=== PATIENT | female | born 1965 | race Caucasian/White ===

== ENCOUNTER 2017-04-04 07:38 | Day surgery (SDC) | payer BC, OTHER ==
[2017-03-28 14:11] VITALS: BMI 25.8
--- NOTE | 2017-04-04 08:16 | HP ---
Past Medical History - Primary Care Physician PCP:: James Smith - Admission Chief Complaint: thicken irregular EM History of Present Illness: 51 yo f with hx of irregular vaginal bleeding , sono showed irregular thick EM, admitted for hysteroscpy , D&C, possible polypectomy History Source: Patient Limitations to Obtaining History: No Limitations - Past Medical History Pulmonary: Yes: Asthma Gastrointestinal: Yes: GERD - Past Surgical History Hx Myomectomy: No Hx Transabdominal Cerclage: No - Smoking History Smoking history: Never smoked Have you smoked in the past 12 months: No Aproximately how many cigarettes per day: 0 - Alcohol/Substance Use Hx Alcohol Use: Yes (SICIALLY) - Social History History of Recent Travel: No Home Medications - Allergies Allergies/Adverse Reactions: Allergies Allergy/AdvReac Type Severity Reaction Status Date / Time terbutaline sulfate Allergy "HEARTRATE Verified 03/28/17 14:22 [From Brethine] INCREASED,BP DROPPED" - Home Medications Home Medications: Ambulatory Orders Albuterol Sulfate Inhaler - [Ventolin HFA Inhaler -] 1 - 2 inh PO PRN PRN Budesonide/Formeterol Fumarate [SYMBICORT 80/4.5mcg -] 1 inh PO PRN PRN Ranitidine HCl [Zantac] 300 mg PO DAILY 03/28/17 Review of Systems - Review of Systems Constitutional: reports: No Symptoms Eyes: reports: No Symptoms HENT: reports: No Symptoms Neck: reports: No Symptoms Cardiovascular: reports: No Symptoms Respiratory: reports: No Symptoms Gastrointestinal: reports: Bloating Genitourinary: reports: No Symptoms Breasts: reports: No Symptoms Reported Musculoskeletal: reports: No Symptoms Neurological: reports: No Symptoms Endocrine: reports: No Symptoms Hematology/Lymphatic: reports: No Symptoms Psychiatric: reports: No Symptoms Physical Exam-SLIDE [employer] Constitutional: Yes: Well Nourished, No Distress, Calm Eyes: Yes: WNL, Conjunctiva Clear, EOM Intact HENT: Yes: WNL, Atraumatic, Normocephalic Neck: Yes: WNL, Supple, Trachea Midline Cardiovascular: Yes: WNL, Regular Rate and Rhythm Respiratory: Yes: WNL, Regular, CTA Bilaterally Gastrointestinal: Yes: WNL ...Rectal Exam: Yes: WNL Renal/: Yes: WNL External Genitalia: Yes: Normal Vaginal Exam: Yes: Normal Cervix: Yes: Normal Uterus: Yes: Normal Adnexa: Not Palpable: Left, Right Breast(s): Yes: WNL Musculoskeletal: Yes: WNL Extremities: Yes: WNL Edema: No Integumentary: Yes: WNL Neurological: Yes: WNL, Alert, Oriented ...Motor Strength: WNL Psychiatric: Yes: WNL, Alert, Oriented Problem List - Problem (1) Metrorrhagia Code(s): N92.1 - EXCESSIVE AND FREQUENT MENSTRUATION WITH IRREGULAR CYCLE (2) Thickened endometrium Code(s): R93.8 - ABNORMAL FINDINGS ON DIAGNOSTIC IMAGING OF BODY STRUCTURES Assessment/Plan hysteroscopy, D&C, rba discussed
[2017-04-04] MEDS ORDERED: LIDOCAINE HCL/PF 2% SDV 5ML VIAL ONE (09:19)
[2017-04-04] MEDS ORDERED: MIDAZOLAM HCL 2 MG/2 ML SINGLE DOSE VIAL ONE (09:20)
[2017-04-04] MEDS ORDERED: PROPOFOL 20 ML ONE (09:20)
[2017-04-04] MEDS ORDERED: ROCURONIUM BROMIDE 50 MG/5 ML VIAL ONE (09:20)
[2017-04-04] MEDS ORDERED: ONDANSETRON 4 MG/2 ML VIAL IVPB PRN (10:27)
[2017-04-04] MEDS ORDERED: oxyCODONE HCL 5 MG TABLET PO PRN ×2 (10:27→11:20)
[2017-04-04] MEDS ORDERED: IBUPROFEN 800 MG/8 ML IJ IVPB PRN (10:27)
[2017-04-04] MEDS ORDERED: IBUPROFEN 600 MG TABLET (FP) PO PRN (10:27)
[2017-04-04] MEDS ORDERED: ELECTROLYTE-148 SOLN 1,000 ML IV SCH (10:30)
[2017-04-04] MEDS ORDERED: KETOROLAC TROMETHAMINE 30 MG/1 ML VIAL ONE (11:12)
[2017-04-04] MEDS ORDERED: KETOROLAC TROMETHAMINE 30 MG/1 ML VIAL IVPUSH ONE (11:20)
[2017-04-04 11:29] VITALS: TEMP 97.8
[2017-04-04] MEDS ORDERED: LACTATED RINGERS SOLUTION 1,000 ML IV SCH (11:30)
[2017-04-04] MEDS ORDERED: ONDANSETRON 4 MG/2 ML VIAL ONE (11:45)
[2017-04-04] MEDS ORDERED: ONDANSETRON 4 MG/2 ML VIAL IVPB ONE (11:51)
--- NOTE | 2017-04-04 12:05 | OP ---
DATE OF OPERATION: 04/04/2017 PREOPERATIVE DIAGNOSIS: Metrorrhagia and thickened, irregular endometrium. POSTOPERATIVE DIAGNOSIS: Metrorrhagia and thickened, irregular endometrium. PROCEDURE: Hysteroscopy, dilatation and curettage. SURGEON: James Smith MD ANESTHESIA: General. ESTIMATED BLOOD LOSS: 25 mL DESCRIPTION OF OPERATION: Patient was taken to the operating room. Under adequate general anesthesia, examination under anesthesia revealed external genitalia to be normal. Vagina was normal. Cervix was clean with a grade 2 prolapse. Small cystocele. The uterus was normal size, retroverted. Adnexa: No masses were palpable. Then, with a weighted speculum in the vagina, anterior lip of the cervix was grasped with single-tooth tenaculum, and then cervix was gradually dilated with Hegar dilator. Hysteroscope was introduced. Visualization of endocervical canal appeared to be normal. No polyp was seen. Then, endocervix was stenotic and difficult to dilate. After dilation of the endocervical canal with the Hegar dilator, hysteroscope was introduced, and then, the endometrium appeared to be adhesions consistent with the previous endometrial ablation. No polyp was found. Both cornual regions were visualized. Ostium was visualized. Several endometrial adhesions to the anterior and posterior wall were seen, which were lysed with moving the hysteroscope around. Then, endometrium was curetted. A small amount of tissue was obtained. Patient tolerated the procedure well, left the OR in good condition. Jeffy [id number]
[2017-04-04 13:39] VITALS: BP 124/84; PULSE 83
--- NOTE | 2017-04-05 14:19 | PATH ---
Surgical Pathology Report Patient Name: [facility]. Rec. #: [id number] /Age/Gender: 1965 (Age: 51) / F Account: [id number] Location: [facility] SUR[facility]ICAL Taken: 04/04/2017 Received: 04/04/2017 Reported: 04/05/2017 Physicians: James Smith M.D. Specimen(s) Received ENDOMETRIAL CURETTINGS Clinical History Postmenopausal bleeding Final Diagnosis ENDOMETRIUM, CURETTAGE: MINUTE STRIPS OF ATROPHIC APPEARING ENDOMETRIUM. FRAGMENTS OF BENIGN ENDOCERVICAL TISSUE. SMALL FRAGMENTS OF BENIGN SQUAMOUS EPITHELIUM. Electronically Signed Cas Clayton M.D. Gross Description Received in formalin labeled "endometrial curettings" is a 1.4 x 1.0 x 0.2 cm aggregate of mayfield-red soft tissue fragments. The formalin is filtered and the specimen is entirely submitted in one cassette. /04/04/201704/04/2017
== END 2017-04-04 13:30 | disposition home or self-care (01) ==
LOC: JASU-SURG 07:38
PROVIDERS: ATTEND Obstetrics & Gynecology
PROC: 0UDB8ZX Extraction of Endometrium, Via Natural or Artificial Opening Endoscopic, Diagnostic (ICD-10-PCS; principal; 2017-04-04 09:00)
DX: N92.1 Excessive and frequent menstruation with irregular cycle (principal); R93.8 Abnormal findings on diagnostic imaging of other specified body structures
CPT/HCPCS: 84703; 88305-TC; 94760

== ENCOUNTER 2018-06-24 01:31 | Emergency (ER) | payer BC ==
--- NOTE | 2018-06-24 01:45 | PDOC ---
History of Present Illness - General Chief Complaint: Injury Stated Complaint: RT KNEE PAIN Time Seen by Provider: 06/24/18 01:38 EDT - History of Present Illness Initial Comments: 06/24/18 01:29 EST This 53-year-old woman with a history of bilateral high riding patella and s/p bilateral surgical correction of a high riding patella(performed when patient was in her teen years) presents with right knee injury. Just prior to presentation, patient was walking on uneven pavement when she tripped and fell, Striking the anterior portion of her right knee. Patient sensed that she dislocated her patella and needed to reduce it prior to being able to stand. She was subsequently able to stand and ambulate although she had pain and swelling in the right knee. Patient took 3 OTC Advil with some relief of her pain. No other injury sustained. Patient states that since her surgical correction until now, she had no issues with patellar dislocation or other acute problems. Past History - Past Medical History Allergies/Adverse Reactions: Allergies Allergy/AdvReac Type Severity Reaction Status Date / Time terbutaline sulfate Allergy "HEARTRATE Verified 03/28/17 14:22 [From Brethine] INCREASED,BP DROPPED" Home Medications: Ambulatory Orders Albuterol Sulfate Inhaler - [Ventolin Hfa Inhaler -] 1 - 2 inh PO QID PRN Budesonide/Formeterol Fumarate [SYMBICORT 160/4.5mcg -] 1 inh PO DAILY 06/24/18 Anemia: No Asthma: Yes Cancer: No Cardiac Disorders: No CVA: No COPD: No CHF: No Dementia: No Diabetes: No GI Disorders: Yes (DIVERTICULITIS) Disorders: No HTN: No Hypercholesterolemia: No Liver Disease: No Seizures: No Thyroid Disease: No - Surgical History Orthopedic Surgery: Yes (KNEE) - Suicide/Smoking/Psychosocial Hx Smoking Status: No Smoking History: Never smoked Have you smoked in the past 12 months: No Number of Cigarettes Smoked Daily: 0 Hx Alcohol Use: Yes (OCC) Drug/Substance Use Hx: No Substance Use Type: None Hx Substance Use Treatment: No Review of Systems - Review of Systems Able to Perform ROS?: Yes Comments:: 12 point review of systems is negative except for what is noted in the history of present illness *Physical Exam - Physical Exam Comments: GENERAL: Adult female, alert and oriented 3, in no acute distress HEAD: Normal with no signs of trauma. EYES: PERRLA, EOMI, sclera anicteric, conjunctiva clear. ENT: Ears normal, nares patent, oropharynx clear without exudates. Moist mucous membranes. NECK: Normal range of motion, supple without lymphadenopathy, JVD, or masses. LUNGS: Breath sounds equal, clear to auscultation bilaterally. No wheezes, and no crackles. HEART:Regular rate and rhythm, normal S1 and S2 without murmur, rub or gallop. ABDOMEN:.normal bowel sounds No guarding,tenderness or rebound.No masses No distention. EXTREMITIES: Right knee-moderate edema of the anterior aspect of the knee with patella appearing somewhat distal to usual physician Flexion limited; no ecchymosis/ deformity/point tenderness joint line Remainder of the extremity exam is normal NEUROLOGICAL: Cranial nerves II through XII grossly intact. Normal speech. No focal neurological deficits. MUSCULOSKELETAL: Back non-tender to palpation, no CVA tenderness SKIN: Warm, Dry, normal turgor, no rashes or lesions noted. Progress Note - Progress Note Progress Note: 3 position x-ray of the right knee performed and interpreted by me: No evidence of fracture or effusion. Patella appears somewhat superior than normal but not medial or lateral to the midline Medical Decision Making - Medical Decision Making Patient states that her knee is much less edematous than earlier and comfortable. She feels that she can be fairly functional with knee in current state, especially if knee mobilizer is used knee immobilizer placed on the right leg. The patient will be discharged with instructions to elevate and ice the knee as much as possible over the next 2 days. Patient's mother, who accompany the patient, works with in the wound care clinic at [facility]. She states that her daughter can follow-up with Dr. Barbour on June 26. Meanwhile, patient will elevate and ice the right leg as much as possible. She should not work until being seen by Dr. Barbour. Work documentation has been given to her. The patient states that she will take [id number] ibuprofen as needed for pain. She should return to the emergency room if she has worsening of her pain or increased swelling in the area around her right knee. *DC/Admit/Observation/Transfer Diagnosis at time of Disposition: Closed dislocation of right patella Qualifiers: Encounter type: initial encounter Qualified Code(s): S83.004A - Unspecified dislocation of right patella, initial encounter - Discharge Dispostion Disposition: HOME Condition at time of disposition: Stable - Referrals Referrals: Willard Boateng MD [Primary Care Provider] - Lawson Barbour MD [Staff Physician] - - Patient Instructions Printed Discharge Instructions: DI for Patellar Dislocation Additional Instructions: Elevation/ice to right knee as much as possible over the next 48 hours Keep knee immobilizer in place Ibuprofen/acetaminophen/naproxen as needed for pain Follow-up with Dr. Barbour on June 26 as discussed Return to ER if you have severe pain/swelling No work until Jun 27 - Post Discharge Activity Forms/Work/School Notes: Back to Work
[2018-06-24 01:55] VITALS: BP 109/75; PULSE 82; TEMP 98.1; BMI 25.8
== END 2018-06-24 02:16 | disposition home or self-care (01) ==
LOC: FER 01:31
PROC: 2W3QX1Z Immobilization of Right Lower Leg using Splint (ICD-10-PCS; principal; 2018-06-24)
DX: S83.004A Unspecified dislocation of right patella, initial encounter (principal); X58.XXXA Exposure to other specified factors, initial encounter; Y93.89 Activity, other specified; Y92.9 Unspecified place or not applicable; J45.909 Unspecified asthma, uncomplicated
CPT/HCPCS: 73562-TC-RT-FY; 99282-25

== ENCOUNTER 2020-03-07 23:30 | Emergency (ER) | payer BC, OTHER ==
[2020-03-08 00:06] VITALS: BMI 27.3
[2020-03-08] MEDS ORDERED: FAMOTIDINE 20 MG/50 ML IVPB 20 MG/50 ML MG IVPB ONE ×2 (00:53→00:57)
[2020-03-08] MEDS ORDERED: MAG HYDROX/AL HYDROX/SIMETH -MYLANTA- ORAL SUSPENSION PO ONE (00:53)
[2020-03-08] MEDS ORDERED: LIDOCAINE VISCOUS 2% ORAL/TOP 20 ML UNIT-DOSE CUP MM ONE (00:53)
[2020-03-08] MEDS ORDERED: LIDOCAINE VISCOUS 2% ORAL/TOP 20 ML UNIT-DOSE CUP ONE (00:57)
[2020-03-08] MEDS ORDERED: MAG HYDROX/AL HYDROX/SIMETH 30 ML UNIT-DOSE CUP ONE (00:57)
--- NOTE | 2020-03-08 01:08 | PDOC ---
Documentation entered by Cata Orantes SCRIBE, acting as scribe for Socorro Doan MD. Socorro Doan MD: This documentation has been prepared by the Lamberto dugan Sydney, SCRIBE, under my direction and personally reviewed by me in its entirety. I confirm that the documentation accurately reflects all work, treatment, procedures, and medical decision making performed by me. Attending Attestation - Resident Resident Name: Red Grimaldo - ED Attending Attestation I have performed the following: I have examined & evaluated the patient, The case was reviewed & discussed with the resident, I agree w/resident's findings & plan, Exceptions are as noted - HPI HPI: 03/08/20 00:24 Patient is a 54 year old female with a significant past medical history of asthma, indigestion who presents to the ED with two days of progressively worsening epigastric discomfort. As per patient, she developed her usual epigastric discomfort and did not take any medications secondary to unable to refill her previous medication. Patient notes she went to sleep, but was awoken by her worsening symptoms. Patient endorses recently eating greasy foods and drinking more alcohol. Denies shortness of breath, perspirations, fever, or cough. Allergies: Terbutaline sulfate - Physicial Exam PE: 03/08/20 01:09 GENERAL: Well-appearing, well-nourished. No apparent distress. HEENT: Normocephalic, atraumatic. PERRL, EOM intact. CARDIOVASCULAR: Normal S1, S2. Regular rate and rhythm. PULMONARY: Clear to auscultation bilaterally. ABDOMEN: Soft, non-distended, non-tender. EXTREMITIES: Normal ROM in all four extremities. No gross deformities. SKIN: Warm, dry. No rash NEUROLOGICAL: No focal neurological deficits. - Medical Decision Making 03/08/20 01:24 CBC is normal 03/08/20 02:06 ALL LABS NORMAL pT WILL GET A TSH ADDED ON; SHE IS STABLE FOR D/C HOME 03/08/20 03:54 TSH AND FREE T4 NORMAL Discharge - Discharge Information Problems reviewed: Yes Clinical Impression/Diagnosis: Epigastric pain Fatigue Qualifiers: Fatigue type: unspecified Qualified Code(s): R53.83 - Other fatigue Condition: Stable Disposition: HOME - Admission No - Follow up/Referral Referrals: Cristhian Dior MD [Staff Physician] - CallBack Reminder: TSH - Patient Discharge Instructions Patient Printed Discharge Instructions: DI for Gastroesophageal Reflux Disease (GERD) Additional Instructions: Discharge Instructions: You were seen in the emergency department for pain. This is most likely due to acid reflux. Home Care and Follow Up; - Drink plenty of fluids at home. A good way to tell that you are well-hydrated is to make sure you need to urinate (pee) at least every 4 hours. - Consider taking a daily acid medication such as Pepcid (famotidine). This may be taken every day even if you do not have symptoms - Use Maalox or Mylanta for continued symptoms after eating - Avoid spicy, acidic, greasy foods as well as alcohol and caffeine. These can worsen symptoms - Call your primary doctor on Monday to schedule a follow up appointment - Make an appointment to see a GI specialist within the next 1-2 weeks. You may need additional testing. You have been given contact information for Dr Dior. - Seek immediate care for worsening symptoms, persistent vomiting, inability to eat, dehydration (eg not urinating, dry mouth), you have chest pain with exercise, you develop fever, you have cough or shortness of breath, or you have any other medical emergency. - Post Discharge Activity
[2020-03-08 01:18] LABS: BASO % 0.8 % (0-2.0); EOS % 3.6 % (0-4.5); HEMOGLOBIN 12.3 GM/dL (10.7-15.3); LYMPH % 37.1 % (8-40); MCH 31.3 pg (25.7-33.7); MCHC 33.2 g/dl (32.0-36.0); MEAN CELL VOLUME 94.5 fl (80-96); MONO % 8.1 % (3.8-10.2); NEUT % 50.4 % (42.8-82.8); PLATELET COUNT 166 K/MM3 (134-434); RBC 3.91 M/mm3 (3.60-5.2); RDW 13.5 % (11.6-15.6); WHITE BLOOD COUNT 5.4 K/mm3 (4.0-10.0)
[2020-03-08 01:47] LABS: ALBUMIN 3.6 g/dl (3.4-5.0); ALK PHOS 46 U/L (45-117); ANION GAP 5 MMOL/L (8-16); BILIRUBIN,TOTAL 0.3 mg/dL (0.2-1); BLOOD UREA NITROGEN 22.6 mg/dL (7-18); CALCIUM 8.6 mg/dL (8.5-10.1); CHLORIDE 107 mmol/L (98-107); CO2 28 mmol/L (21-32); CREATININE 0.9 mg/dL (0.55-1.3); GLUCOSE,RANDOM 95 mg/dL (74-106); POTASSIUM 3.9 mmol/L (3.5-5.1); SGOT/AST 22 U/L (15-37); SGPT/ALT 23 U/L (13-61); SODIUM 140 mmol/L (136-145); TOT PROT 6.5 g/dl (6.4-8.2)
--- NOTE | 2020-03-08 02:14 | PDOC ---
History of Present Illness <Cece Forbes - Last Filed: 03/08/20 02:14> - History of Present Illness Initial Comments: 03/08/20 02:01 54 F with asthma came to the ED with chest discomfort and ingestion. These started out yesterday, and it's been getting worse. Patient denies Nausea, fever, chills. Patient agreed that epigastric pain was most likely due to GERD. But due to the pressure from her mother, she just want to come to ED for further checkup . PMHX: as in HPI PSHX: ortho surgery Meds: none Allergies: shrimp Tob: neg Etoh: occasional Rec drugs: denies ROS GENERAL/CONSTITUTIONAL: No fever or chills. No weakness. HEAD, EYES, EARS, NOSE AND THROAT: No change in vision. No ear pain or dischar ge. No sore throat. CARDIOVASCULAR: No chest pain. shortness of breath RESPIRATORY: No cough, wheezing, or hemoptysis. GASTROINTESTINAL: No nausea, vomiting, diarrhea or constipation. GENITOURINARY: No dysuria, frequency, or change in urination. MUSCULOSKELETAL: No joint or muscle swelling or pain. No neck or back pain. SKIN: No rash NEUROLOGIC: No headache, vertigo, loss of consciousness, or change in strength/sensation. dizziness ENDOCRINE: No increased thirst. No abnormal weight change HEMATOLOGIC/LYMPHATIC: No anemia, easy bleeding, or history of blood clots. ALLERGIC/IMMUNOLOGIC: No hives or skin allergy. PE GENERAL: Awake, alert, and fully oriented, in no acute distress HEAD: No signs of trauma, normocephalic, atraumatic EYES: PERRLA, EOMI, sclera anicteric, conjunctiva clear ENT: Auricles normal inspection, hearing grossly normal, nares patent, oropharynx clear without exudates. Moist mucosa NECK: Normal ROM, supple, no lymphadenopathy, JVD, or masses LUNGS: No distress, speaks full sentences, clear to auscultation bilaterally HEART: Regular rate and rhythm, normal S1 and S2, no murmurs, rubs or gallops, peripheral pulses normal and equal bilaterally. ABDOMEN: Soft, nontender, normoactive bowel sounds. No guarding, no rebound. No masses. epigastric pain . EXTREMITIES : Normal inspection, Normal range of motion, no edema. No clubbing or cyanosis. NEUROLOGICAL: Cranial nerves II through XII grossly intact. Normal speech, normal gait, no focal sensorimotor deficits SKIN: Warm, Dry, normal turgor, no rashes or lesions noted 03/08/20 04:52 <Red Grimaldo - Last Filed: 03/08/20 04:53> - General Chief Complaint: Chest Pain Stated Complaint: CHEST PAIN/ IDIGESTION Time Seen by Provider: 03/07/20 23:47 Past History <Cece Forbes - Last Filed: 03/08/20 02:14> - Medical History Anemia: No Asthma: Yes Cancer: No Cardiac Disorders: No CVA: No COPD: No CHF: No Dementia: No Diabetes: No GI Disorders: Yes (DIVERTICULITIS) Disorders: No HTN: No Hypercholesterolemia: No Liver Disease: No Seizures: No Thyroid Disease: No - Surgical History Orthopedic Surgery: Yes (KNEE) - Psycho-Social/Smoking History Smoking Status: No Smoking History: Former smoker Have you smoked in the past 12 months: No Number of Cigarettes Smoked Daily: 0 Information on smoking cessation initiated: No - Substance Abuse Hx (Audit-C & DAST Scrn) How often the patient has a drink containing alcohol: Monthly or less Number of drinks the patient has on a typical day: 1 or 2 Score: In Men: 4 or > Positive; In Women: 3 or > Positive: 1 Screen Result (Pos requires Nsg. Audit-10AR): Negative In the last yr the pt used illegal drug/Rx for NonMed reason: No Score: Yes response is considered Positive: 0 Screen Result (Positive result requires Nsg. DAST-10): Negative <Red Grimaldo - Last Filed: 03/08/20 04:53> - Medical History Allergies/Adverse Reactions: Allergies Allergy/AdvReac Type Severity Reaction Status Date / Time shrimp Allergy Verified 03/07/20 23:53 terbutaline sulfate Allergy "HEARTRATE Verified 03/07/20 23:53 [From Brethine] INCREASED,BP DROPPED" Home Medications: Ambulatory Orders Albuterol Sulfate Inhaler - [Ventolin Hfa Inhaler -] 1 - 2 inh PO QID PRN 06/24/18 Budesonide/Formeterol Fumarate [SYMBICORT 160/4.5mcg -] 1 inh PO DAILY 06/24/18 *Physical Exam - Vital Signs Last Vital Signs Temp Pulse Resp BP Pulse Ox 98.6 F 67 13 115/82 96 03/07/20 23:51 03/08/20 00:05 03/08/20 00:05 03/08/20 00:05 03/08/20 00:05 <Cece Forbes - Last Filed: 03/08/20 02:14> - Vital Signs Last Vital Signs Temp Pulse Resp BP Pulse Ox 98.6 F 67 13 115/82 96 03/07/20 23:51 03/08/20 00:05 03/08/20 00:05 03/08/20 00:05 03/08/20 00:05 <GrimaldoMeleRde - Last Filed: 03/08/20 04:53> ED Treatment Course - LABORATORY CBC & Chemistry Diagram: 03/08/20 01:08 03/08/20 01:08 - ADDITIONAL ORDERS Additional order review: Laboratory Results 03/08/20 01:08 Sodium 140 Potassium 3.9 Chloride 107 Carbon Dioxide 28 Anion Gap 5 L BUN 22.6 H Creatinine 0.9 Est GFR (CKD-EPI)AfAm 85.20 Est GFR (CKD-EPI)NonAf 73.51 Random Glucose 95 Calcium 8.6 Total Bilirubin 0.3 AST 22 ALT 23 Alkaline Phosphatase 46 Creatine Kinase 116 Troponin I < 0.02 Total Protein 6.5 Albumin 3.6 03/08/20 01:08 RBC 3.91 MCV 94.5 MCHC 33.2 RDW 13.5 MPV 10.0 Neutrophils % 50.4 Lymphocytes % 37.1 Monocytes % 8.1 Eosinophils % 3.6 D Basophils % 0.8 - RADIOLOGY Radiology Studies Ordered: Category Date Time Status CHEST PA & LAT [RAD] Stat Radiology 03/08/20 00:53 Taken - Medications Given in the ED: ED Medications Discontinued Medications Generic Name Dose Route Start Last Admin Trade Name Freq PRN Reason Stop Dose Admin Al Hydroxide/Mg Hydroxide 30 ml 03/08/20 00:53 03/08/20 01:10 Mylanta Suspension - PO 03/08/20 00:54 30 ml ONCE ONE Administration Famotidine/Sodium Chloride 20 mg in 50 mls @ 100 mls/hr 03/08/20 00:53 03/08/20 01:10 Pepcid 20 Mg Premixed Ivpb - IVPB 03/08/20 01:22 100 mls/hr ONCE ONE Administration Lidocaine HCl 20 ml 03/08/20 00:53 03/08/20 01:10 Xylocaine 2% Viscous Oral - MM 03/08/20 00:54 20 ml ONCE ONE Administration <Cece Forbes - Last Filed: 03/08/20 02:14> - LABORATORY CBC & Chemistry Diagram: 03/08/20 01:08 03/08/20 01:08 - ADDITIONAL ORDERS Additional order review: Laboratory Results 03/08/20 01:08 Sodium 140 Potassium 3.9 Chloride 107 Carbon Dioxide 28 Anion Gap 5 L BUN 22.6 H Creatinine 0.9 Est GFR (CKD-EPI)AfAm 85.20 Est GFR (CKD-EPI)NonAf 73.51 Random Glucose 95 Calcium 8.6 Total Bilirubin 0.3 AST 22 ALT 23 Alkaline Phosphatase 46 Creatine Kinase 116 Troponin I < 0.02 Total Protein 6.5 Albumin 3.6 03/08/20 01:08 RBC 3.91 MCV 94.5 MCHC 33.2 RDW 13.5 MPV 10.0 Neutrophils % 50.4 Lymphocytes % 37.1 Monocytes % 8.1 Eosinophils % 3.6 D Basophils % 0.8 - Medications Given in the ED: ED Medications Discontinued Medications Generic Name Dose Route Start Last Admin Trade Name Freq PRN Reason Stop Dose Admin Al Hydroxide/Mg Hydroxide 30 ml 03/08/20 00:53 03/08/20 01:10 Mylanta Suspension - PO 03/08/20 00:54 30 ml ONCE ONE Administration Famotidine/Sodium Chloride 20 mg in 50 mls @ 100 mls/hr 03/08/20 00:53 03/08/20 01:10 Pepcid 20 Mg Premixed Ivpb - IVPB 03/08/20 01:22 100 mls/hr ONCE ONE Administration Lidocaine HCl 20 ml 03/08/20 00:53 03/08/20 01:10 Xylocaine 2% Viscous Oral - MM 03/08/20 00:54 20 ml ONCE ONE Administration <Red Grimaldo - Last Filed: 03/08/20 04:53> Medical Decision Making - Medical Decision Making 03/08/20 02:24 Patient with asthma came here for epigastric pain. CBC, CMP, Thyroid hormones , troponin were ordered Xray, EKG Med: malox, tylenol. Lab results revealed no concerning problems. Troponin is negative. Thyroid hormones are pending Xray and EKG are normal. Patient was reassessed and stated she felt better. Patient is discharged with GERD. <Red Grimaldo - Last Filed: 03/08/20 04:53> Discharge - Discharge Information Problems reviewed: Yes - Admission No <Cece Forbes - Last Filed: 03/08/20 02:14> <Red Grimaldo - Last Filed: 03/08/20 04:53> - Discharge Information Clinical Impression/Diagnosis: Epigastric pain Fatigue Qualifiers: Fatigue type: unspecified Qualified Code(s): R53.83 - Other fatigue Condition: Stable Disposition: HOME - Follow up/Referral Referrals: Cristhian Dior MD [Staff Physician] - CallBack Reminder: TSH - Patient Discharge Instructions Patient Printed Discharge Instructions: DI for Gastroesophageal Reflux Disease (GERD) Additional Instructions: Discharge Instructions: You were seen in the emergency department for pain. This is most likely due to acid reflux. Home Care and Follow Up; - Drink plenty of fluids at home. A good way to tell that you are well-hydrated is to make sure you need to urinate (pee) at least every 4 hours. - Consider taking a daily acid medication such as Pepcid (famotidine). This may be taken every day even if you do not have symptoms - Use Maalox or Mylanta for continued symptoms after eating - Avoid spicy, acidic, greasy foods as well as alcohol and caffeine. These can worsen symptoms - Call your primary doctor on Monday to schedule a follow up appointment - Make an appointment to see a GI specialist within the next 1-2 weeks. You may need additional testing. You have been given contact information for Dr Dior. - Seek immediate care for worsening symptoms, persistent vomiting, inability to eat, dehydration (eg not urinating, dry mouth), you have chest pain with exercise, you develop fever, you have cough or shortness of breath, or you have any other medical emergency.
[2020-03-08 02:29] VITALS: BP 113/90; PULSE 61; TEMP 98.1
--- NOTE | 2020-03-09 09:17 | EKG ---
Test Reason : Blood Pressure : / mmHG Vent. Rate : 077 BPM Atrial Rate : 077 BPM P-R Int : 166 ms QRS Dur : 100 ms QT Int : 400 ms P-R-T Axes : 066 065 057 degrees QTc Int : 452 ms NORMAL SINUS RHYTHM POSSIBLE LEFT ATRIAL ENLARGEMENT INCOMPLETE RIGHT BUNDLE BRANCH BLOCK BORDERLINE ECG WHEN COMPARED WITH ECG OF 28-MAR-2017 13:08, NO SIGNIFICANT CHANGE WAS FOUND Confirmed by Basilia Padron ([id number]) on 03/09/2020 9:17:39 AM Referred By: Confirmed By:Basilia Padron
== END 2020-03-08 02:25 | disposition home or self-care (01) ==
LOC: JER 23:30
PROC: 3E033NZ Introduction of Analgesics, Hypnotics, Sedatives into Peripheral Vein, Percutaneous Approach (ICD-10-PCS; principal; 2020-03-07)
DX: R10.13 Epigastric pain (principal); R53.83 Other fatigue
CPT/HCPCS: 36415; 71046-TC-FY; 80053; 82550; 84439; 84443; 84484; 85025; 93005; 93010; 99285-25

== ENCOUNTER 2020-08-15 10:03 | Emergency (ER) | payer BC, OTHER | END 2020-08-15 10:53 | disposition home or self-care (01) | LOC: JVIRT 10:03 | DX: R50.9 Fever, unspecified (principal); R05 Cough; Z20.828 Contact with and (suspected) exposure to other viral communicable diseases | CPT/HCPCS: C9803; G2012-GT; Q3014-GT; U0003 ==

== ENCOUNTER 2022-07-01 04:23 | Day surgery (SDC) | payer BC, OTHER ==
[2022-06-29 14:30] VITALS: BMI 27.3
[2022-07-01 08:36] VITALS: TEMP 97.7
[2022-07-01 09:44] VITALS: BP 103/92; PULSE 65; RESP 18
== END 2022-07-01 09:35 | disposition home or self-care (01) ==
LOC: JASU-ENDO 04:23
PROVIDERS: ATTEND Internal Medicine Gastroenterology
PROC: 0DJD8ZZ Inspection of Lower Intestinal Tract, Via Natural or Artificial Opening Endoscopic (ICD-10-PCS; principal; 2022-07-01 09:00)
DX: Z12.11 Encounter for screening for malignant neoplasm of colon (principal); Z83.71 Family history of colonic polyps; K64.8 Other hemorrhoids; K57.30 Diverticulosis of large intestine without perforation or abscess without bleeding